=== PATIENT | male | born 1960 | race Two or more races ===

== ENCOUNTER 2022-12-20 04:30 | Day surgery (SDC) | payer OTHER ==
[~2022-12-20] VITALS: Ht 170.2 cm; Wt 71.7 kg
[~2022-12-20 04:30] MED LIST: NABUMETONE750 MG PO; PEPCID AC20 MG PO; SYNTHROID75 MCG PO; TAMS0.4C PO; ZESTORETIC 20-1 EACH PO
== END 2022-12-20 15:10 | disposition home or self-care (01) ==
LOC: CIR.AMB 04:30
PROVIDERS: ATTEND Specialist
DX: K40.90 Unilateral inguinal hernia, without obstruction or gangrene, not specified as recurrent (principal); Z20.822 Contact with and (suspected) exposure to COVID-19; I10 Essential (primary) hypertension; E03.9 Hypothyroidism, unspecified

== ENCOUNTER 2023-02-28 08:11 | Outpatient (CLI) | payer OTHER | END 2023-02-28 08:15 | disposition home or self-care (01) | LOC: SONOGRAMA 08:11 | PROVIDERS: ATTEND Pathology Anatomic Pathology & Clinical Pathology | DX: D34 Benign neoplasm of thyroid gland (principal); E06.3 Autoimmune thyroiditis ==